=== PATIENT | female | born 1980 | race Hispanic/Latino ===

== ENCOUNTER 2019-03-21 12:58 | Emergency (ER) | payer BC ==
[2019-03-21 13:31] LABS: Absolute Lymphocytes (CBC) 2.3 K/uL (0.7-4.9); Absolute Monocytes 0.6 K/uL (0.1-1.3); Absolute Neutrophil 5.5 K/uL (1.8-8.0); Basophils % 0.7 % (0-1.3); Eosinophils % 2.1 % (0-4.4); Hematocrit 42.4 % (36.0-45.0); Lymphocytes % 26.5 % (15.3-44.8); MPV 8.6 fL (7.6-11.3); Monocytes % 6.5 % (3.3-12.3); RBC Red Blood Cell Count 4.98 M/uL (3.86-4.86)
[2019-03-21] MEDS ORDERED: MORPHINE 4 MG/ML SYR ONE (13:35)
[2019-03-21] MEDS ORDERED: ONDANSETRON 4 MG/2 ML VIAL ONE (13:36)
[2019-03-21] MEDS ORDERED: NA CHLORIDE 0.9% 1,000 ML ONE (13:36)
[2019-03-21 14:02] LABS: ALT/SGPT 21 U/L (12-78); AST/SGOT 16 U/L (15-37); Albumin 3.7 g/dL (3.4-5.0); Alkaline Phosphatase 67 U/L (45-117); BUN Blood Urea Nitrogen 9 mg/dL (7-18); Bicarbonate 26 mmol/L (21-32); Bilirubin Direct 0.1 mg/dL (0-0.2); Bilirubin Total 0.7 mg/dL (0.2-1.0); Glucose Level 89 mg/dL (74-106); Lipase 108 U/L (73-393); Potassium 3.6 mmol/L (3.5-5.1); Protein, Total 7.9 g/dL (6.4-8.2); Sodium Level 141 mmol/L (136-145)
[2019-03-21 14:06] LABS: Urine Blood TRACE (NEG); Urine Glucose NEGATIVE (NEG); Urine Protein TRACE (NEG)
--- NOTE | 2019-03-21 14:25 | RAD REPORT ---
EXAM DESCRIPTION: CT - Abdomen Pelvis W Contrast - 03/21/2019 1:56 pm CLINICAL HISTORY: Abdominal pain/right flank pain and vomiting. COMPARISON: none. TECHNIQUE: Computed axial tomography of the abdomen pelvis was obtained. 100 cc Isovue-300 was admin istered intravenously. Oral contrast was not requested which limits evaluation of bowel. All CT scans are performed using dose optimization technique as appropriate and may include automated exposure control or mA/KV adjustment according to patient size. FINDINGS: The liver, spleen, pancreas, adrenal and kidneys appear unremarkable. There is no evidence of diverticulitis. Normal appendix. 26 millimeter left ovarian cyst with a small amount of free fluid in the pelvis The gallbladder is distended. Mild dilatation common bile duct Tiny umbilical hernia IMPRESSION: Gallbladder distention with mild dilatation of the common bile duct. Ultrasound recommen ded. 26 millimeter left ovarian cyst with small amount of free fluid.
--- NOTE | 2019-03-21 14:27 | RAD REPORT ---
EXAM DESCRIPTION: US - Abdomen Exam Limited - 03/21/2019 2:19 pm CLINICAL HISTORY: Abdominal pain. COMPARISON: March 21, 2019 cat scan FINDINGS: 15 millimeter gallstone. Large amount of sludge is present. Gallbladder wall upper limits normal thickness. Common bile duct measures 8 millimeters IMPRESSION: Cholelithiasis. Large amount of gallbladder sludge. Mild dilatation of the common bile duct.
--- NOTE | 2019-03-21 14:53 | EDPHYS ---
Physician Documentation [facility] Name: Aviva Yin Age: 38 yrs Sex: Female : 1980 Arrival Date: 03/21/2019 Time: 13:00 Bed 6 Private MD: ED Physician Regino Arguello HPI: 03/21 13:15 This 38 yrs old Female presents to ER via Ambulatory with complaints of Abdominal Pain, jmm Vomiting. 13:15 The patient presents with abdominal pain in the epigastric area, in the right upper jmm quadrant, right lower quadrant. Onset: The symptoms/episode began/occurred gradually, 4 day(s) ago. Associated signs and symptoms: Pertinent positives: vomiting. This is a 38 year old female with no chronic medical conditions that presents to the ED with complaints of abdominal pain, vomiting, beginning approx 4 days ago. Denies diarrhea. . Historical: - Allergies: 13:04 No Known Allergies; la1 - Home Meds: 13:04 Omeprazole Oral [Active]; Zyrtec Oral [Active]; la1 - PMHx: 13:04 None; la1 - PSHx: 13:04 ; la1 - Immunization history:: Adult Immunizations up to date. - Social history:: Smoking status: Patient/guardian denies using tobacco. - Ebola Screening: : No symptoms or risks identified at this time. ROS: 13:15 Constitutional: Negative for fever, chills, and weight loss, Cardiovascular: Negative jmm for chest pain, palpitations, and edema, Respiratory: Negative for shortness of breath, cough, wheezing, and pleuritic chest pain. 13:15 Abdomen/GI: Positive for abdominal pain, nausea and vomiting. 13:15 Back: Positive for flank pain, on the right. 13:15 All other systems are negative. Exam: 13:15 Head/Face: atraumatic. Eyes: EOMI, no conjunctival erythema appreciated ENT: Moist jmm Mucus Membranes Neck: Trachea midline, Supple Chest/axilla: Normal chest wall appearance and motion. Cardiovascular: Regular rate and rhythm. No edema appreciated Respiratory: Normal respirations, no respiratory distress appreciated 13:15 Constitutional: The patient appears in no acute distress, alert, awake. 13:15 Abdomen/GI: Inspection: abdomen appears normal, Bowel sounds: normal, Palpation: soft, moderate abdominal tenderness, in the right upper quadrant and right lower quadrant. 13:15 Back: CVA tenderness, that is mild, is noted on the right. 13:15 Musculoskeletal/extremity: ROM: intact in all extremities. 13:15 Skin: Appearance: Color: normal in color. 13:15 Neuro: Orientation: is normal, Mentation: is normal, Memory: is normal. 13:15 Psych: Behavior/mood is pleasant, cooperative. Vital Signs: 13:16 BP 117 / 83; Pulse 65; Resp 16; Temp 97.5; Pulse Ox 98% on R/A; Weight 65.77 kg; Height la1 5 ft. 5 in. (165.10 cm); 13:16 Body Mass Index 24.13 (65.77 kg, 165.10 cm) la1 MDM: 13:08 Patient medically screened. kiel 14:51 Data reviewed: vital signs, nurses notes. Counseling: I had a detailed discussion with korina the patient and/or guardian regarding: the historical points, exam findings, and any diagnostic results supporting the discharge/admit diagnosis, lab results, radiology results, the need for outpatient follow up, to return to the emergency department if symptoms worsen or persist or if there are any questions or concerns that arise at home. ED course: Pain relieved in the ED. Patient is advised to follow up with Gen surgery for reevaluation and is otherwise given strict return precautions. patient understood and agrees with the plan of care. . 03/21 13:11 Order name: Basic Metabolic Panel; Complete Time: 14:28 [facility] 03/21 13:11 Order name: CBC with Diff; Complete Time: 14:28 [facility] 03/21 13:11 Order name: Creatinine for Radiology; Complete Time: 14:28 [facility] 03/21 13:11 Order name: Hepatic Function; Complete Time: 14:28 [facility] 03/21 13:11 Order name: Lipase; Complete Time: 14:28 [facility] 03/21 13:26 Order name: Urine Dipstick--Ancillary (enter results) 03/21 13:11 Order name: IV Saline Lock; Complete Time: 13:24 [facility] 03/21 13:11 Order name: Labs collected and sent; Complete Time: 13:24 [facility] 03/21 13:11 Order name: CT Abd/Pelvis - W/Contrast; Complete Time: 14:28 [facility] 03/21 13:11 Order name: US Abdomen Limited; Complete Time: 14:28 [facility] 03/21 13:26 Order name: Urine --Ancillary (enter results) bd 03/21 13:11 Order name: Urine Dipstick-Ancillary (obtain specimen); Complete Time: 13:13 [facility] Administered Medications: 13:24 Drug: morphine 4 mg Route: IVP; Site: right antecubital; la1 15:17 Follow up: Response: No adverse reaction; Pain is decreased la1 13:24 Drug: Zofran 4 mg Route: IVP; Site: right antecubital; la1 15:17 Follow up: Response: No adverse reaction la1 13:24 Drug: NS 0.9% 1000 ml Route: IV; Rate: 1 bolus; Site: right antecubital; la1 15:18 Follow up: IV Status: Completed infusion la1 Disposition: 03/22 07:48 Co-signature as Attending Physician, Regino Arguello MD I agree with the assessment and kiel plan of care. Disposition: 03/21/19 14:52 Discharged to Home. Impression: Cholelithiasis. - Condition is Stable. - Discharge Instructions: Cholelithiasis. - Prescriptions for Zofran ODT 4 mg Oral tablet,disintegrating - place 1 tablet by TRANSLINGUAL route every 4-6 hours; 20 tablet. Tylenol- Codeine #3 300-30 mg Oral Tablet - take 1 tablet by ORAL route every 6 hours As needed; 20 tablet. - Medication Reconciliation Form, Thank You Letter, Antibiotic Education, Prescription Opioid Use form. - Follow up: Josue Dumont MD; When: 2 - 3 days; Reason: Recheck today's complaints, Continuance of care, Re-evaluation by your physician. Signatures: Dispatcher [employer] Regino Gonzalez MD MD cha Mickail, Joel, PA PA jmm Attema, Lee, RN RN la1 Corrections: (The following items were deleted from the chart) 03/21 15:19 14:52 03/21/2019 14:52 Discharged to Home. Impression: Cholelithiasis. Condition is la1 Stable. Forms are Medication Reconciliation Form, Thank You Letter, Antibiotic Education, Prescription Opioid Use. Follow up: Josue Dumont; When: 2 - 3 days; Reason: Recheck today's complaints, Continuance of care, Re-evaluation by your physician. korina
--- NOTE | 2019-03-21 14:53 | ER ---
Nurse's Notes [facility] Name: Aviva Yin Age: 38 yrs Sex: Female : 1980 Arrival Date: 03/21/2019 Time: 13:00 Bed 6 Private MD: Diagnosis: Cholelithiasis Presentation: 03/21 13:04 Presenting complaint: Patient states: right sided back and abd pain, vomiting since la1 Friday. Denies urinary sx. Transition of care: patient was not received from another setting of care. Onset of symptoms was March 21, 2019. Risk Assessment: Do you want to hurt yourself or someone else? Patient reports no desire to harm self or others. Initial Sepsis Screen: Does the patient meet any 2 criteria? No. Patient's initial sepsis screen is negative. Does the patient have a suspected source of infection? No. Patient's initial sepsis screen is negative. Care prior to arrival: None. 13:04 Method Of Arrival: Ambulatory la1 13:04 Acuity: ANDRE 3 la1 Historical: - Allergies: 13:04 No Known Allergies; la1 - Home Meds: 13:04 Omeprazole Oral [Active]; Zyrtec Oral [Active]; la1 - PMHx: 13:04 None; la1 - PSHx: 13:04 ; la1 - Immunization history:: Adult Immunizations up to date. - Social history:: Smoking status: Patient/guardian denies using tobacco. - Ebola Screening: : No symptoms or risks identified at this time. Screenin:06 Abuse screen: Denies threats or abuse. Nutritional screening: No deficits noted. la1 Tuberculosis screening: No symptoms or risk factors identified. Fall Risk None identified. Assessment: 13:05 General: Appears in no apparent distress. Behavior is calm, cooperative. Pain: la1 Complains of pain in epigastric area, posterior aspect of right lateral abdomen and right upper quadrant. Neuro: Level of Consciousness is awake, alert, obeys commands, Oriented to person, place, time, situation. Cardiovascular: Capillary refill < 3 seconds Patient's skin is warm and dry. Respiratory: Airway is patent Respiratory effort is even, unlabored, Respiratory pattern is regular, symmetrical, Breath sounds are clear bilaterally. GI: Abdomen is round non-distended, Bowel sounds present X 4 quads. Abd is soft X 4 quads Abdomen is tender to palpation in right upper quadrant and right lower quadrant. 14:28 Reassessment: Patient appears in no apparent distress at this time. No changes from la1 previously documented assessment. Patient and/or family updated on plan of care and expected duration. Pain level reassessed. Vital Signs: 13:16 BP 117 / 83; Pulse 65; Resp 16; Temp 97.5; Pulse Ox 98% on R/A; Weight 65.77 kg; Height la1 5 ft. 5 in. (165.10 cm); 13:16 Body Mass Index 24.13 (65.77 kg, 165.10 cm) la1 ED Course: 13:00 Patient arrived in ED. tw3 13:04 Keon Saunders, ANUJA is Primary Nurse. la1 13:04 Jay Good PA is PHCP. jmm 13:04 Regino Arguello MD is Attending Physician. jmm 13:05 Triage completed. la1 13:05 Arm band placed on right wrist. la1 13:06 Bed in low position. Call light in reach. Side rails up X 1. la1 13:24 No provider procedures requiring assistance completed. Inserted saline lock: 20 gauge la1 in right antecubital area, using aseptic technique. Blood collected. 13:25 Radiology exam delayed due to lab results not completed at this time. (BUN/Creatinine) bq test not completed at this time. 13:53 CT completed. Patient tolerated procedure well. Patient moved back from CT. bq 13:57 CT Abd/Pelvis - W/Contrast In Process Unspecified. EDMS 14:19 Ultrasound completed. Patient tolerated well. sg3 14:21 US Abdomen Limited In Process Unspecified. EDMS 14:52 Josue Dumont MD is Referral Physician. jmm 15:19 IV discontinued, intact, bleeding controlled, No redness/swelling at site. Pressure la1 dressing applied. Administered Medications: 13:24 Drug: morphine 4 mg Route: IVP; Site: right antecubital; la1 15:17 Follow up: Response: No adverse reaction; Pain is decreased la1 13:24 Drug: Zofran 4 mg Route: IVP; Site: right antecubital; la1 15:17 Follow up: Response: No adverse reaction la1 13:24 Drug: NS 0.9% 1000 ml Route: IV; Rate: 1 bolus; Site: right antecubital; la1 15:18 Follow up: IV Status: Completed infusion la1 Outcome: 14:52 Discharge ordered by . korina 15:18 Discharged to home ambulatory. la1 15:18 Condition: stable 15:18 Discharge instructions given to patient, Instructed on discharge instructions, follow up and referral plans. medication usage, Demonstrated understanding of instructions, follow-up care, medications, Prescriptions given X 2. 15:19 Patient left the ED. la1 Signatures: Dispatcher [employer] EDMS Jay Good PA PA jmm Quilty, Betty bq Attema, Lee RN RN la1 Carri Martin 3 Maya Gtz 3
== END 2019-03-21 15:19 | disposition home or self-care (01) ==
LOC: ER 12:58
DX: K80.20 Calculus of gallbladder without cholecystitis without obstruction (principal)
CPT/HCPCS: 36415; 74177; 76705; 80048; 80076; 81003; 81025; 83690; 85025; 96361; 96374; 96375; 99284; J2405; J7030; Q9967

== ENCOUNTER 2019-03-25 16:41 | Observation (INO) | payer BC ==
[2019-03-25] MEDS: NA CHLORIDE 0.9% 1,000 ML IV SCH (18:00)
[2019-03-25 18:11] LABS: Absolute Lymphocytes (CBC) 2.1 K/uL (0.7-4.9); Absolute Monocytes 0.6 K/uL (0.1-1.3); Absolute Neutrophil 5.7 K/uL (1.8-8.0); Basophils % 1.1 % (0-1.3); Hematocrit 41.9 % (36.0-45.0); Lymphocytes % 23.6 % (15.3-44.8); MPV 8.7 fL (7.6-11.3); RBC Red Blood Cell Count 4.94 M/uL (3.86-4.86)
[2019-03-25 18:36] LABS: ALT/SGPT 22 U/L (12-78); AST/SGOT 12 U/L (15-37); Alkaline Phosphatase 75 U/L (45-117); Amylase Level 42 U/L (25-115); BUN Blood Urea Nitrogen 7 mg/dL (7-18); Bicarbonate 28 mmol/L (21-32); Bilirubin Direct 0.1 mg/dL (0-0.2); Bilirubin Total 0.5 mg/dL (0.2-1.0); Glucose Level 93 mg/dL (74-106); Lipase 103 U/L (73-393); Protein, Total 8.4 g/dL (6.4-8.2); Sodium Level 139 mmol/L (136-145)
[2019-03-25] MEDS: MORPHINE 2 MG/ML SYR IV PRN ×2 (20:10→22:38)
[2019-03-25 23:47] LABS: Urine Appearance CLEAR; Urine Bilirubin NEGATIVE (NEG); Urine Blood TRACE (NEG); Urine Color YELLOW; Urine Glucose NEGATIVE (NEG); Urine Protein NEGATIVE (NEG); Urine Urobilinogen 0.2 mg/dL (0.2-1.0); Urine pH 6.5 (5.0-7.0)
[2019-03-25 23:48] LABS: Urine Microscopic Reflex ORDER UMIC
[2019-03-25 23:54] LABS: Urine Bacteria <20 /HPF (<20); Urine Culture Reflex Order NOT NEEDED; Urine RBC <5 /HPF (NONE SEEN)
[2019-03-26] MEDS: PIPER/TAZO/NS 3.375gm 3.375 GM/100 ML BAG IV SCH ×3 (00:05→18:09)
[2019-03-26] MEDS: MORPHINE 4 MG/ML SYR IV PRN ×2 (00:59→09:12)
--- NOTE | 2019-03-26 02:21 | HP ---
Date of Admission: 03/25/2019 Preoperative Diagnoses: Acute cholecystitis, symptomatic cholelithiasis. History Of Present Illness: This is the case of a 38-year-old patient, who comes to [facility] doctor, today with epigastric right upper quadrant pain, radiating to the back, associated with na usea and vomiting. This happened about a week ago. She came to the ER. She was sent home and since she did not improve she decided to come today to Dr. Brambila who called me since the patient was havi ng intractable abdominal pain to admit the patient to the hospital and see the patient for possible c holecystectomy. The patient denies any dysuria, hematuria, hematochezia, or melena. Denies any rece nt traveling out of the country. Denies any family member sick at home. Past Medical History: GE reflux. Medications: Omeprazole, Zyrtec. Surgical History: C-sections. Social History: She does not smoke. She does drink alcohol. Family History: Noncontributory. Review of Systems: Ten points otherwise unremarkable. Physical Examination: General: The patient is awake and alert. HEENT: Pupils are equal and reactive, anicteric. Neck: Supple. Chest: Clear. Abdomen: Epigastric right upper quadrant pain with Hall sign positive. Pelvic: Deferred. Rectal: Deferred. Breasts: Deferred. Extremities: Good capillary refill. Neuro: Cranial nerves 2 through 12 grossly within normal limits. Laboratory Data: Blood work shows WBC count of 8.8, hemoglobin of 14.1, potassium is 4.0, total bili dotson of 0.3. Lipase 103. UA is still pending. The ultrasound that was done in March 2019 shows a l arge amount of sludge with cholelithiasis and dilatation of the common bile duct. Plan: Patient will be admitted. IV antibiotics. N.p.o. We are going to obtain an MRCP to evaluate the dilatation of the common bile duct. If there are no stones in that area, then the patient will go for laparoscopic possible open cholecystectomy with benefits, alternatives, and risks including bu t not limited to infection, bleeding, damage to adjacent structures, anesthesia complication, choleli thiasis, bile leak, pancreatitis, [place], and even . She also understands this might not relieve an y symptoms and she might need more than one surgical intervention. She understood and she will sign a consent. DOROTHY Voice ID: [id number]
[2019-03-26 06:22] LABS: Albumin 3.2 g/dL (3.4-5.0); Bilirubin Direct 0.1 mg/dL (0-0.2); Bilirubin Total 0.8 mg/dL (0.2-1.0)
[2019-03-26] MEDS: NA CHLORIDE 0.9% 1,000 ML IV SCH ×2 (06:33→19:00)
--- NOTE | 2019-03-26 09:09 | RAD REPORT ---
EXAM DESCRIPTION: MRI - Cholangiogram - 03/26/2019 8:12 am CLINICAL HISTORY: dilated cbd Abdominal pain COMPARISON: Abdomen Exam Limited dated 03/21/2019; Abdomen Pelvis W Contrast dated 03/21/2019 FINDINGS: Three-dimensional MRCP was performed using maximum intensity projection reconstruction on the same work station. No intrahepatic biliary tree dilatation is seen. The common bile duct is normal caliber without evide nce of retained stone, stricture or mass. The pancreatic duct is not pathologically dilated. The gallbladder appears distended with. Mild pericholecystic fluid and wall thickening of the gallbla dder suspected. Large gallstone is present in the gallbladder. Limited T2 sequences through the abdomen demonstrates no bulky adenopathy, significant free fluid or abscess. IMPRESSION: The findings would be compatible with cholelithiasis with evidence of acute cholecystiti s. Common bile duct is normal without evidence of common bile duct stone.
[2019-03-26] MEDS: ONDANSETRON 4 MG/2 ML VIAL IV PRN ×2 (11:09→18:10)
[2019-03-26] MEDS: MORPHINE 2 MG/ML SYR IV PRN ×4 (11:10→21:54)
[2019-03-26] MEDS ORDERED: Ringers Lactate 1,000 ML IV ONE (14:23)
[2019-03-26] MEDS ORDERED: PROPOFOL 200 MG/20 ML VIAL IV ONE (15:29)
[2019-03-26] MEDS ORDERED: FENTANYL CITR 100 MCG/2 ML ONE ×2 (15:29→16:21)
[2019-03-26] MEDS ORDERED: MIDAZOLAM HCL 2 MG/2 ML INJ ONE (15:29)
[2019-03-26] MEDS ORDERED: ROCURONIUM 50 MG/5 ML VIAL IV ONE (15:29)
[2019-03-26] MEDS ORDERED: LIDOCAINE 2% MPF 5 ML VIAL ONE (15:29)
[2019-03-26] MEDS ORDERED: ONDANSETRON 4 MG/2 ML VIAL ONE (15:30)
[2019-03-26] MEDS ORDERED: KETOROLAC 30 MG/ML INJ ONE (16:03)
[2019-03-26] MEDS ORDERED: DEXAMETHASONE 10 MG/ML VIAL ONE (16:03)
[2019-03-26] MEDS ORDERED: GLYCOPYRROLATE 0.2 MG/ML SYR ONE (16:28)
[2019-03-26] MEDS ORDERED: NEOSTIGMINE 1 MG/ML -10 ML VIAL ONE (16:29)
--- NOTE | 2019-03-26 16:48 | P.BOP ---
Preoperative diagnosis: acute cholecystitis, Symptomatic cholelithiasis, Postoperative diagnosis: same Primary procedure: Laparoscopic cholecystectomy Estimated blood loss: <10cc Specimen: gb Findings: as above Anesthesia: General Complications: None Transferred to: Recovery Room Condition: Good
[2019-03-26] MEDS ORDERED: ONDANSETRON 4 MG (ODT) TAB PO PRN (16:50)
[2019-03-27] MEDS: PIPER/TAZO/NS 3.375gm 3.375 GM/100 ML BAG IV SCH ×3 (00:32→17:31)
[2019-03-27] MEDS: NA CHLORIDE 0.9% 1,000 ML IV SCH ×3 (00:33→20:00)
[2019-03-27] MEDS: MORPHINE 4 MG/ML SYR IV PRN (00:46)
--- NOTE | 2019-03-27 03:16 | OP ---
Date of Procedure: 03/26/2019 Surgeon: Josue Dumont MD Preoperative Diagnoses: Acute cholecystitis, symptomatic cholelithiasis. Postoperative Diagnoses: Acute cholecystitis, symptomatic cholelithiasis. Procedure: Laparoscopic cholecystectomy. Anesthesia: General plus local. Drain: JACQUI #10. Findings: Acute cholecystitis, distended gallbladder, inflamed gallbladder wall. Indications: This is the case of a 38-year-old patient, comes to us with above diagnosis. Fully exp lained the benefits, alternatives, and risks of laparoscopic possible open cholecystectomy, which inc lude but are not limited to infection, bleeding, damage to adjacent structures, anesthesia complicati on, cholelithiasis, bile leak, pancreatitis, [place], and even . She also understands this may not r elieve any symptoms, she might need more than one surgical intervention. She understood, signed a co nsent. Description Of Procedure: The patient was brought to the operating room, placed in supine position. Anesthesia was done without complication. Abdominal area was prepped and draped in a sterile fashio n. Marcaine 0.5% was injected for local anesthetic, followed by sharp incision of the skin in the in fraumbilical region. Incision was carried down to fascia, which was opened under direct vision. Per itoneum was encountered, opened under direct vision. Vicryl #1 was placed inside the fascia. Rene trocar was carefully introduced. Pneumoperitoneum was obtained. I placed 3 more trocars, 5 mm each one of them, under direct visualization in the right upper quadrant. The gallbladder looks very inf lamed and distended, so we have to put an Endo needle under direct visualization and aspirated the ga llbladder. Needle was removed from abdominal cavity under direct visualization. A grasper was place d in the fundus of the gallbladder. Another grasper was placed in the infundibulum. The gallbladder was retracted in the inferolateral fashion exposing the triangle of Calot and obtaining critical vie w of safety. The cystic duct and cystic artery were clearly isolated free circumferentially and a co nnection between those and the gallbladder was clearly identified. I proceeded to ligate those by us ing at least 3 clips proximal, 1 clip distal, ligation in middle. Same was done with the cystic carmita ry. A small little branch of the cystic artery was also ligated. The hepatic artery and common bile duct were protected at all times. Gallbladder was removed from the liver using Bovie cauterizer and removed from abdominal cavity using EndoCatch through the umbilical incision. This patient has puru lent discharge coming from the gallbladder on aspiration. I left the JACQUI drain on the area of the gal lbladder fossa exiting through one of the trocar sites to aspirate the area. Secured it in place wit h 3-0 nylon. The area was inspected once again. No bile leak. No bleeding. Clips were intact. At that moment, I proceeded to remove the trocars under direct vision, deflated the pneumoperitoneum, c losed the fascia with #1 Vicryl, irrigated subcu tissue, closed that with chromic and skin with stapl es. Sponge count and instrument counts were correct. The patient tolerated the procedure well. The patient was sent to recovery in stable condition. AIDA/JANEE Voice ID: [id number] Report ID: [id number]
[2019-03-27] MEDS: HYDROCODONE/APAP 5/325 MG TAB PO PRN ×2 (15:34→22:16)
[2019-03-27] MEDS: ONDANSETRON 4 MG/2 ML VIAL IV PRN (22:16)
[2019-03-28] MEDS: PIPER/TAZO/NS 3.375gm 3.375 GM/100 ML BAG IV SCH ×2 (00:47→08:55)
[2019-03-28] MEDS: NA CHLORIDE 0.9% 1,000 ML IV SCH ×2 (05:46→08:30)
[2019-03-28] MEDS: MORPHINE 2 MG/ML SYR IV PRN (08:57)
== END 2019-03-28 13:30 | disposition home or self-care (01) ==
LOC: 2ND 17:25
PROVIDERS: ADMIT Surgery; ATTEND Surgery
PROC: 0FT44ZZ Resection of Gallbladder, Percutaneous Endoscopic Approach (ICD-10-PCS; principal; 2019-03-26 14:30)
DX: K80.12 Calculus of gallbladder with acute and chronic cholecystitis without obstruction (principal); K21.9 Gastro-esophageal reflux disease without esophagitis
CPT/HCPCS: 36415; 74181; 80048; 80076; 81003; 81015; 81025; 82150; 83690; 85025; 88304; G0378; J1100; J2250; J2270; J2405; J2543; J2704; J2710; J3010; J7030